=== PATIENT | male | born 1965 | race Caucasian/White ===

== ENCOUNTER 2017-07-18 18:25 | Emergency (ER) | payer OTHER ==
--- NOTE | 2017-07-18 20:54 | RAD ---
THORACIC SPINE RADIOGRAPHS THREE VIEWS: Date: 07-18-17 Provided Clinical History: Back pain status post injury. FINDINGS: Thoracic alignment appears normal. Vertebral body heights appear preserved. Thoracic disc degenerativ e changes are seen. Pedicles appear intact. IMPRESSION: No evidence for an acute abnormality. POS: [facility]
--- NOTE | 2017-07-18 21:25 | RAD ---
CERVICAL SPINE RADIOGRAPHS THREE VIEWS: Date: 07-18-17 Provided Clinical History: Neck pain status post injury. FINDINGS: Cervical alignment appears normal. Vertebral body heights appear preserved. No prevertebral soft tiss ue swelling is evident. No evidence for fracture. Visualized lung apices appear clear. Cervical degen erative changes are seen. IMPRESSION: No evidence for fracture or traumatic subluxation. POS: [facility]
== END 2017-07-18 20:52 | disposition home or self-care (01) ==
LOC: NAV ERS 18:25
DX: S29.012A Strain of muscle and tendon of back wall of thorax, initial encounter (principal); V43.52XA Car driver injured in collision with other type car in traffic accident, initial encounter
CPT/HCPCS: 72040; 72072